=== PATIENT | female | born 1995 | race Caucasian/White ===

== ENCOUNTER → 2017-04-16 | Outpatient (REF) | payer MEDICAID | LOC: M LAB REF 12:44 | PROVIDERS: ATTEND Obstetrics & Gynecology | DX: R10.2 Pelvic and perineal pain (principal) ==

== ENCOUNTER → 2017-05-02 | Outpatient (CLI) | payer MEDICAID, OTHER ==
--- NOTE | 2017-05-03 06:15 | REP ---
COMPLETE OBSTETRICAL ULTRASOUND: CLINICAL: Anatomical evaluation. COMPARISON: None. FINDINGS: Ultrasound examination demonstrates single live intrauterine in cephalic presentation. motion was identified by the technologist. Placenta is noted posteriorly and grade 0 without evidence for placenta previa or abruption. Amniotic fluid volume is normal. Cervix measures 3.2 cm in length and appears closed. No evidence for nuchal cord. Gestational age by LMP 18 weeks 1 day with estimated date of delivery 10/02/2017. Gestational age by current measurements 19 weeks 1 day with estimated date of delivery 09/25/2017. FHR 155 beats per minute. BPD 4.4 cm 19 weeks 2 days HC 15.8 cm 18 weeks 5 days AC 13.7 cm 19 weeks 1 day FL 2.8 cm 18 weeks 4 days HL 2.8 cm 19 weeks 0 days HC/AC ratio 1.16. Estimated weight 262 grams (78th percentile). Anatomical assessment is complete and normal. Visualized structures include cranium, choroid plexus, cavum, cerebellum/posterior fossa, facial features, lungs, four chamber heart/ventricular outflow tracts, diaphragm, stomach, cord insertion/three vessel cord, kidneys/bladder, spine and extremities. IMPRESSION: Single live intrauterine in cephalic presentation demonstrating appropriate interval growth. Anatomical assessment is complete and normal. No gross abnormalities are identified. Signed by Edmund Freitas MD 05/04/2017 08:42 A
== END ==
LOC: M RAD 14:55
PROVIDERS: ATTEND Specialist
DX: Z34.82 Encounter for supervision of other normal pregnancy, second trimester (principal); Z3A.18 18 weeks gestation of pregnancy

== ENCOUNTER → 2017-05-23 | Outpatient (CLI) | payer OTHER ==
[2017-05-23 20:33] LABS: BASO % 0.3 % (0.0-1.0); EOS # 0.2 10^3/uL (0.0-0.50); EOS % 1.5 % (0.0-3.0); HEMATOCRIT 35.2 % (36.0-47.0); HEMOGLOBIN 11.8 g/dl (12.0-16.0); IMMATURE GRANULOCYTE # 0.2 10^3/uL (0-0); IMMATURE GRANULOCYTE % 1.3 % (0-0); LYMPH # 2.6 10^3/uL (1.5-6.5); LYMPH % 23.2 % (24.0-44.0); MEAN CORPUSCULAR HEMOGLOBIN 29.5 pg (27.0-33.0); MEAN CORPUSCULAR HGB CONC 33.5 g/dl (32.0-36.5); MONO # 0.8 10^3/uL (0.0-0.8); MONO % 6.6 % (0.0-5.0); NEUTROPHILS # 7.6 10^3/uL (1.8-7.7); NEUTROPHILS % 67.1 % (36.0-66.0); PLATELET COUNT, AUTOMATED 348 10^3/uL (150-450); RED CELL DISTRIBUTION WIDTH 13.7 % (11.5-14.5); WHITE BLOOD COUNT 11.3 10^3/uL (4.0-10.0)
[2017-05-23 22:24] LABS: CHLAMYDIA DNA AMPLIFICATION NEGATIVE (NEGATIVE); GC DNA AMPLIFICATION NEGATIVE (NEGATIVE)
[2017-05-24 17:36] LABS: RUBELLA IgG QUALITATIVE IMMUNE (IMMUNE)
[2017-05-24 18:05] LABS: HEPATITIS C VIRUS ABY INDEX 0.1 INDEX (<0.8)
[2017-05-24 18:05] LABS: HIV 1&2 SCREEN CENTAUR NEGATIVE (NEGATIVE)
[2017-05-24 18:06] LABS: HBsAg Prenatal NEGATIVE (NEGATIVE)
== END ==
LOC: M SMT 14:36
DX: Z34.81 Encounter for supervision of other normal pregnancy, first trimester (principal); Z36.89 Encounter for other specified antenatal screening
CPT/HCPCS: 86762

== ENCOUNTER → 2017-07-19 | Outpatient (CLI) | payer OTHER ==
[2017-07-19 13:48] LABS: BASO # 0.1 10^3/uL (0.0-0.2); BASO % 0.5 % (0.0-1.0); EOS # 0.1 10^3/uL (0.0-0.50); EOS % 0.5 % (0.0-3.0); HEMATOCRIT 34.8 % (36.0-47.0); HEMOGLOBIN 11.8 g/dl (12.0-16.0); IMMATURE GRANULOCYTE % 1.9 % (0-3.0); LYMPH # 2.1 10^3/uL (1.5-6.5); LYMPH % 17.5 % (24.0-44.0); MEAN CORPUSCULAR HGB CONC 33.9 g/dl (32.0-36.5); MEAN CORPUSCULAR VOLUME 85.5 fl (80.0-96.0); MONO # 0.7 10^3/uL (0.0-0.8); MONO % 5.4 % (0.0-5.0); NEUTROPHILS # 9.1 10^3/uL (1.8-7.7); NEUTROPHILS % 74.2 % (36.0-66.0); PLATELET COUNT, AUTOMATED 368 10^3/uL (150-450); RED BLOOD COUNT 4.07 10^6/uL (4.00-5.40); RED CELL DISTRIBUTION WIDTH 12.2 % (11.5-14.5); WHITE BLOOD COUNT 12.2 10^3/uL (4.0-10.0)
[2017-07-19 14:02] LABS: GLUCOSE CHALLENGE TEST 1 HOUR 127 MG/DL (LESS THAN 140)
== END ==
LOC: M LAB 12:16
DX: Z34.82 Encounter for supervision of other normal pregnancy, second trimester (principal)
CPT/HCPCS: 82950

== ENCOUNTER → 2017-09-10 | Outpatient (REF) | payer OTHER | LOC: M LAB REF 12:54 | DX: Z34.83 Encounter for supervision of other normal pregnancy, third trimester (principal) | CPT/HCPCS: 87081 ==

== ENCOUNTER 2017-10-02 08:22 | Inpatient (IN) | payer OTHER ==
[2017-10-02 13:42] LABS: HEMATOCRIT 32.3 % (36.0-47.0); HEMOGLOBIN 10.8 g/dl (12.0-15.5); MEAN CORPUSCULAR HEMOGLOBIN 26.2 pg (27.0-33.0); MEAN CORPUSCULAR HGB CONC 33.4 g/dl (32.0-36.5); MEAN CORPUSCULAR VOLUME 78.4 fl (80.0-96.0); PLATELET COUNT, AUTOMATED 354 10^3/uL (150-450); RED BLOOD COUNT 4.12 10^6/uL (4.00-5.40); RED CELL DISTRIBUTION WIDTH 13.3 % (11.5-14.5); WHITE BLOOD COUNT 13.1 10^3/uL (4.0-10.0)
[2017-10-02] MEDS: LR 1,000 ML IV (14:25)
[2017-10-02] MEDS ORDERED: PROMETHAZINE INJ 25 MG/ML VIAL (J2550) IV (16:45)
[2017-10-02] MEDS ORDERED: FENTANYL 2MCG/ML ROPIVACAINE 0.2% IN 0.9% NACL 200ML IVBAG As Ordered (16:58)
[2017-10-02] MEDS: BUTORPHANOL 2 MG/ML INJ (J0595) IV (17:00)
[2017-10-02] MEDS ORDERED: REFRIGERATOR IV KEYS XX (17:30)
[2017-10-02] MEDS ORDERED: EPIDURAL/PCA KEYS XX (17:30)
[2017-10-02] MEDS ORDERED: ePHEDrine SULFATE 25 MG/5 ML(5MG/ML) SYRINGE IV (17:30)
[2017-10-02] MEDS ORDERED: FENTANYL/ROPIVACAINE/NACL BAG 200 ML EPIDURAL (17:30)
[2017-10-02] MEDS ORDERED: NALOXONE INJ 0.4 MG/1 ML VIAL (J2310) IV (17:30)
[2017-10-02] MEDS ORDERED: diphenhydrAMINE INJ 50MG/ML VIAL (J1200) IV (17:30)
[2017-10-02] MEDS ORDERED: EPIDURAL COMMENT XX (17:30)
[2017-10-02] MEDS ORDERED: ONDANSETRON 4MG/2ML VIAL (J2405) IV (17:30)
[2017-10-02] MEDS ORDERED: LACTATED RINGER'S 1000 ML IV (17:30)
[2017-10-02] MEDS ORDERED: OXYTOCIN 30 UNITS IN 0.9% NaCl 500ML IV BAG (J2590) As Ordered (22:44)
[2017-10-03] MEDS: OXYTOCIN DRIP 30 UNITS in APPROPRIATE DILUENT 1 EA IV (03:37)
[2017-10-03] MEDS ORDERED: MOM 30ML SUSPENSION UDC PO (03:45)
[2017-10-03] MEDS ORDERED: ANUSOL HC CREAM 30GM TOP (03:45)
[2017-10-03] MEDS ORDERED: METHYLERGONOVINE MALEATE 0.2 MG TAB PO (03:45)
[2017-10-03] MEDS ORDERED: DIBUCAINE 1% OINTMENT 30GM TOP (03:45)
[2017-10-03] MEDS ORDERED: DOCUSATE SODIUM 100 MG CAP PO (03:45)
[2017-10-03] MEDS: RHOGAM 300 MCG (1500 IU) INJ (J2790) IM (07:32)
[2017-10-03] MEDS: MEASLES,MUMPS,RUBELLA VACCINE INJ (MMR-II) (90707) SC (07:32)
[2017-10-03] MEDS: ACETAMINOPHEN 500 MG TAB PO ×2 (08:51→20:05)
[2017-10-03] MEDS: PRENATAL VITAMINS CHEWABLE TABLET PO (08:51)
[2017-10-03] MEDS: IBUPROFEN 800 MG TAB PO ×2 (11:40→15:14)
[2017-10-04] MEDS: IBUPROFEN 800 MG TAB PO (06:18)
[2017-10-04] MEDS: PRENATAL VITAMINS CHEWABLE TABLET PO (09:19)
== END 2017-10-04 13:45 | disposition home or self-care (01) | DRG 560 ==
LOC: M LDO 08:22 → M OBS 10-03 04:23 → M LDI 12:39
PROVIDERS: Obstetrics & Gynecology
PROC: 10907ZC Drainage of Amniotic Fluid, Therapeutic from Products of Conception, Via Natural or Artificial Opening (ICD-10-PCS; 2017-10-02)
PROC: 10E0XZZ Delivery of Products of Conception, External Approach (ICD-10-PCS; principal; 2017-10-03)
PROC: 0HQ9XZZ Repair Perineum Skin, External Approach (ICD-10-PCS; 2017-10-03)
DX: O48.0 Post-term pregnancy (principal); O70.0 First degree perineal laceration during delivery; Z37.0 Single live birth; Z3A.40 40 weeks gestation of pregnancy

== ENCOUNTER → 2020-07-18 | Outpatient (CLI) | payer BC ==
[~2020-07-18] MED LIST: ADVI200T PO; MAPA500T2 PO; STUACAP PO
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
== END ==
LOC: M RAD 16:55
PROVIDERS: ATTEND Nurse Practitioner Family
DX: M54.2 Cervicalgia (principal)

== ENCOUNTER → 2024-03-24 | Outpatient (CLI) | payer BC, SELFPAY | LOC: M WHC 07:17 | PROVIDERS: ATTEND Nurse Practitioner Family | DX: N60.12 Diffuse cystic mastopathy of left breast (principal); N63.21 Unspecified lump in the left breast, upper outer quadrant; N63.22 Unspecified lump in the left breast, upper inner quadrant ==